=== PATIENT | female | born 1985 | race African-American/Black ===

== ENCOUNTER 2021-01-04 18:02 | Emergency (ER) | payer OTHER ==
[2021-01-04 18:26] VITALS: BP 113/70; PULSE 96; TEMP 99.8; BMI 31.8
== END 2021-01-04 18:59 | disposition home or self-care (01) ==
LOC: JCOVINFU 18:02 → JER 18:02 → JCOVINFU 18:59
DX: U07.1 COVID-19 (principal)
CPT/HCPCS: 71046-TC-FY; 99283-25